=== PATIENT | male | born 1955 | race Caucasian/White ===

== ENCOUNTER 2016-12-21 12:49 | Emergency (ER) | payer MEDICAID, OTHER ==
[2016-12-21] MEDS ORDERED: Aspirin 81 MG Tab.Chew PO ONE (12:52)
--- NOTE | 2016-12-21 13:35 | EDM.PDOC ---
ED HPI GENERAL MEDICAL PROBLEM - General Chief Complaint: General Stated Complaint: SOB Time Seen by Provider: 12/21/16 12:49 Source of Information: Reports: Patient History Limitations: Reports: No limitations - History of Present Illness INITIAL COMMENTS - FREE TEXT/NARRATIVE: The patient presents with SOB that has been ongoing for the past 1 week. He denies chest pain or pressure. He has a history significant for hypertension, hyperlipidemia, chronic renal failure on hemodialysis three times weekly, and has smoked 1-2 ppd for over 40 years. He denies history of SD, PE, DVT, or stroke. He reports he has not had dialysis in over 1 week as he gets his dialysis in [place], [place] and he is here for work. He denies fever, chills, bodyaches, cough, or chest congestion. He denies other symptoms or complaints. - Related Data Allergies Allergy/AdvReac Type Severity Reaction Status Date / Time No Known Drug Allergies Allergy Cannot Verified 10/07/15 17:50 Remember Home Meds: Home Meds Aspirin [Halfprin] 81 mg PO DAILY 10/07/15 [History] Hydrochlorothiazide 25 mg PO DAILY 10/07/15 [History] Lisinopril [Prinivil] 10 mg PO DAILY 10/07/15 [History] Simvastatin [Zocor] 40 mg PO BEDTIME 10/07/15 [History] Past Medical History HEENT History: Reports: Impaired vision Cardiovascular History: Reports: Aneurysm, High cholesterol, Hypertension Genitourinary History: Reports: Renal calculus Neurological History: Reports: Headaches, chronic, Head trauma Social & Family History - Tobacco Use Smoking Status *Q: Current Every Day Smoker Years of Tobacco use: 40 Packs/Tins Daily: 1 Used Tobacco, but Quit: No Second Hand Smoke Exposure: Yes - Recreational Drug Use Recreational Drug Use: No ED ROS GENERAL - Review of Systems Review Of Systems: ROS reveals no pertinent complaints other than HPI. ED EXAM, GENERAL - Physical Exam Exam: See Below Exam Limited By: No limitations General Appearance: alert, WD/WN, mild distress (Respiratory with hypoxia and tachypnea.) Eye Exam: bilateral eye: EOMI, normal inspection, PERRL Ears: normal external exam, normal canal, hearing grossly normal, normal TMs Ear Exam: bilateral ear: auricle normal, canal normal, TM normal Nose: normal inspection, normal mucosa, no blood Throat/Mouth: Normal inspection, Normal lips, Normal teeth, Normal gums, Normal oropharynx, Normal voice, No airway compromise Head: atraumatic, normocephalic Neck: normal inspection, supple, non-tender, full range of motion. No: lymphadenopathy (L), lymphadenopathy (R), tender lateral, tender midline Respiratory/Chest: lungs clear, normal breath sounds, no accessory muscle use, chest non-tender, respiratory distress (Tachypnea). No: decreased breath sounds , crackles, rales, rhonchi, wheezing, stridor Cardiovascular: normal peripheral pulses, regular rate, rhythm, no edema, no gallop, no rub, systolic murmur (Grade 2/6, loudest lower left sternal border.) Peripheral Pulses: 2+: radial (L), radial (R), dorsalis pedis (L), dorsalis pedis (R) GI/Abdominal: normal bowel sounds, soft, non tender, no organomegaly, no distention Back Exam: normal inspection, full range of motion. No: CVA tenderness (L), CVA tenderness (R), paraspinal tenderness, vertebral tenderness Extremities: normal inspection, normal range of motion, non-tender, no pedal edema, normal capillary refill Neurological: alert, oriented, CN II-XII intact, normal cognition, normal gait, normal reflexes, no motor/sensory deficits Psychiatric: normal affect, normal mood Skin Exam: Warm, Dry, Intact, Normal color, No rash Lymphatic: no adenopathy EKG INTERPRETATION EKG Date: 12/21/16 Time: 13:12 Rhythm: NSR Rate (beats/min): 73 [place]: LAD-left axis deviation P-wave: present QRS: RBBB (QRS 134) ST-T: other (T wave inversions in inferior and precordial leads.) QT: normal Comparison: NA - no prior EKG Course - Orders/Labs/Meds Orders: Active Orders 24 hr Category Date Time Status EKG Documentation Completion [RC] STAT Care 12/21/16 13:11 Active Peripheral IV Care [RC] . DIRECTED Care 12/21/16 13:38 Active Chest 1V Frontal [CR] Stat Exams 12/21/16 12:58 Taken D Dimer [D-DIMER QUANTITATIVE] [COAG] Stat Lab 12/21/16 13:01 Received Sodium Chloride 0.9% [Normal Saline] 1,000 ml Med 12/21/16 13:45 Active IV ASDIRECTED Sodium Chloride 0.9% [Saline Flush] Med 12/21/16 13:38 Active 10 ml FLUSH ASDIRECTED PRN Peripheral IV Insertion Adult [OM.PC] Routine Oth 12/21/16 13:38 Ordered Medication Orders Sodium Chloride (Normal Saline) 1,000 mls @ 75 mls/hr IV ASDIRECTED ETTA Sodium Chloride (Saline Flush) 10 ml FLUSH ASDIRECTED PRN PRN Reason: Keep Vein Open Labs: Laboratory Tests 12/21/16 12/21/16 12/21/16 Range/Units 13:01 13:01 13:01 WBC 8.9 (4.0-10.2) K/uL RBC 3.15 L (4.33-5.41) M/uL Hgb 10.0 L (13.1-16.8) g/dL Hct 32.0 L (39.0-49.0) % MCV 101.6 H (84.0-98.0) fL MCH 31.7 (28.2-33.3) pg MCHC 31.3 L (31.7-36.0) g/dL RDW 14.8 H (11.2-14.1) % Plt Count 232 (150-350) K/uL Neut % (Auto) 80.9 H (45.0-80.0) % Lymph % (Auto) 11.5 (10.0-50.0) % [place] % (Auto) 6.2 (2.0-14.0) % Eos % (Auto) 0.6 (0.0-5.0) % Baso % (Auto) 0.8 (0.0-2.0) % Neut # (Auto) 7.18 H (1.40-7.00) K/uL Lymph # (Auto) 1.02 (0.50-3.50) K/uL [place] # (Auto) 0.55 (0.00-1.00) K/uL Eos # (Auto) 0.05 (0.00-0.50) K/uL Baso # (Auto) 0.07 (0.00-0.20) K/uL Sodium 137 (136-145) mmol/L Potassium 5.7 H* (3.5-5.1) mmol/L Chloride 104 (98-107) mmol/L Carbon Dioxide 19.3 L (21.0-32.0) mmol/L BUN 80 H (7-18) mg/dL Creatinine 6.72 H* (0.51-1.17) mg/dL Est Cr Clr Drug Dosing TNP Estimated GFR (MDRD) 8 mL/min Glucose 144 H (74-106) mg/dL Calcium 8.2 L (8.5-10.1) mg/dL Total Bilirubin 0.6 (0.2-1.0) mg/dL AST 22 (15-37) U/L ALT 20 (12-78) U/L Alkaline Phosphatase 88 (46-116) IU/L Creatine Kinase 45 (26-308) U/L Creatine Kinase Index 4.9 H* (0.0-2.5) % CK-MB (CK-2) 2.20 (0.00-3.60) ng/mL Troponin I 0.080 H* (0.000-0.056) ng/mL [id number] Pept > 47934 H (0-125) pg/mL Total Protein 7.4 (6.4-8.2) g/dL Albumin 2.6 L (3.4-5.0) g/dL Meds: Medications Generic Name Dose Route Start Last Admin Trade Name Freq PRN Reason Stop Dose Admin Sodium Chloride 1,000 mls @ 75 mls/hr 12/21/16 13:45 Normal Saline IV ASDIRECTED ETTA Sodium Chloride 10 ml 12/21/16 13:38 Saline Flush FLUSH ASDIRECTED PRN Keep Vein Open Discontinued Medications Generic Name Dose Route Start Last Admin Trade Name Freq PRN Reason Stop Dose Admin Aspirin 324 mg 12/21/16 12:52 12/21/16 13:15 Aspirin PO 12/21/16 12:53 324 mg ONETIME ONE Administration - Radiology Interpretation Free Text/Narrative:: CXR shows CHF with fluid overload. No infiltrates or consolidation. Departure - Departure Time of Disposition: 14:00 Disposition: DC/Tfer to [facility] Clinical Impression: End stage renal disease, Uremia, acute, Troponin level elevated, Kidney disease with fluid retention CHF (congestive heart failure) Qualifiers: Congestive heart failure type: unspecified congestive heart failure type Congestive heart failure chronicity: unspecified congestive heart failure chronicity Qualified Code(s): I50.9 - Heart failure, unspecified Forms: ED Department Discharge - My Orders Last 24 Hours: My Active Orders 12/21/16 12:58 Chest 1V Frontal [CR] Stat 12/21/16 13:01 D Dimer [D-DIMER QUANTITATIVE] [COAG] Stat 12/21/16 13:11 EKG Documentation Completion [RC] STAT 12/21/16 13:38 Peripheral IV Care [RC] . DIRECTED Sodium Chloride 0.9% [Saline Flush] 10 ml FLUSH ASDIRECTED PRN Peripheral IV Insertion Adult [OM.PC] Routine 12/21/16 13:45 Sodium Chloride 0.9% [Normal Saline] 1,000 ml IV ASDIRECTED - Assessment/Plan Last 24 Hours: My Active Orders 12/21/16 12:58 Chest 1V Frontal [CR] Stat 12/21/16 13:01 D Dimer [D-DIMER QUANTITATIVE] [COAG] Stat 12/21/16 13:11 EKG Documentation Completion [RC] STAT 12/21/16 13:38 Peripheral IV Care [RC] . DIRECTED Sodium Chloride 0.9% [Saline Flush] 10 ml FLUSH ASDIRECTED PRN Peripheral IV Insertion Adult [OM.PC] Routine 12/21/16 13:45 Sodium Chloride 0.9% [Normal Saline] 1,000 ml IV ASDIRECTED Assessment:: End Stage Renal Disease with Fluid Retention secondary to missed Dialysis CHF, likely secondary to fluid retention Hypoxia, secondary to Fluid Retention and Subsequent CHF Uremia with diminished bicarbonate Elevated troponin, most likely secondary to demand ischemia, less likely NSTEMI Plan: 1. Given aspirin 324 mg PO on arrival in ER. 2. Oxygen by [place] at 4 L to maintain oxygen > 92%. 3. Called to discuss with hospitalist Dr. Sanford at [facility] who agrees to accept and agrees patient is in need of dialysis. 4. Transfer by [facility] ground ambulance with oxygen per [place] to keep O2 > 92%, continuous telemetry and pulse oximetry, nitroglycerin 0.4 mg SL every 5 minutes as needed for chest pain, morphine 2-4 mg IV as needed for pain.
[2016-12-21] MEDS ORDERED: Sodium Chloride 0.9% 10 ML Syringe FLUSH PRN ×2 (13:38→14:14)
[2016-12-21 13:41] LABS: CHLORIDE,CL 104 mmol/L (98-107); SODIUM,NA 137 mmol/L (136-145)
[2016-12-21] MEDS ORDERED: Sodium Chloride 0.9% 1,000 ML IV SCH (13:45)
[2016-12-22 20:18] VITALS: BP 128/73
== END 2016-12-21 15:05 ==
LOC: LL.ED 12:49
DX: I13.2 Hypertensive heart and chronic kidney disease with heart failure and with stage 5 chronic kidney disease, or end stage renal disease (principal); I50.9 Heart failure, unspecified; N18.6 End stage renal disease; F17.210 Nicotine dependence, cigarettes, uncomplicated; E78.00 Pure hypercholesterolemia, unspecified; Z79.82 Long term (current) use of aspirin; Z79.899 Other long term (current) drug therapy
CPT/HCPCS: 36000; 36415; 71010; 80053; 82550; 82553; 83880; 84484; 85025; 85379; 93005; 99285; A9270